=== PATIENT | male | born 1990 | race Caucasian/White ===

== ENCOUNTER 2016-11-04 17:49 | Emergency (ER) | payer BC, MEDICAID ==
[2016-11-04 18:04] VITALS: BP 139/82
[2016-11-04] MEDS ORDERED: Sodium Chloride 0.9% 10 ML Syringe FLUSH PRN (18:20)
[2016-11-04] MEDS ORDERED: Ondansetron 4 MG/2 ML SDV IVPUSH ONE (18:34)
[2016-11-04] MEDS ORDERED: Sodium Chloride 0.9% 1,000 ML IV ONE (18:34)
[2016-11-04] MEDS ORDERED: HYDROmorphone 0.5 MG/0.5 ML Syringe IVPUSH ONE (18:34)
--- NOTE | 2016-11-04 18:40 | EDM.PDOC ---
ED HPI GENERAL MEDICAL PROBLEM - General Chief Complaint: Abdominal Pain Stated Complaint: STOMACH PAIN SHORTNESS OF BREATH Time Seen by Provider: 11/04/16 18:25 Source of Information: Reports: Patient History Limitations: Reports: No Limitations - History of Present Illness INITIAL COMMENTS - FREE TEXT/NARRATIVE: Patient is a 26-year-old male who presents to the ED with generalized abdominal pain and bloated sensation. Patient states this past Thursday had fever with n/v and diarrhea. These symptoms have subsided the pain remains. Pain has been radiating up into both shoulders as of recent. He was evaluated at the [facility] today with x-ray of the abdomen obtained. Findings were concerning for ileus thus he was instructed to be evaluated in the E.D. Patient received 2 liters of IV fluids while at the clinic. Of note daughter recently had gastroenteritis as well. As of today patient denies any fever/chills, sore throat, chest pain, short of breath, dysuria, dizziness, bad or questionalble food, recent out of country travel, or any additional complaints. Upper Abdominal Pain Score (Numeric/FACES): 5 - Related Data Allergies Allergy/AdvReac Type Severity Reaction Status Date / Time No Known Allergies Allergy Verified 11/04/16 17:58 Home Meds: Home Meds . [No Known Home Meds] 11/04/16 [History] Past Medical History Genitourinary History: Reports: Renal Calculus Social & Family History - Recreational Drug Use Recreational Drug Use: No ED ROS GENERAL - Review of Systems Review Of Systems: See Below Constitutional: Reports: Fever, Malaise, Decreased Appetite Respiratory: Reports: No Symptoms Cardiovascular: Reports: No Symptoms GI/Abdominal: Reports: Abdominal Pain, Decreased Appetite, Distension, Nausea. Denies: Black Stool, Bloody Stool, Constipation, Diarrhea, Flatus, Hematemesis, Hematochezia, Vomiting : Denies: Dysuria Musculoskeletal: Reports: Shoulder Pain (bilateral discomfort to the ), Back Pain Neurological: Denies: Dizziness, Headache ED EXAM, GI/ABD - Physical Exam Exam: See Below Exam Limited By: No Limitations General Appearance: Alert, WD/WN, No Apparent Distress Eyes: Bilateral: Normal Appearance Ears: Hearing Grossly Normal Nose: Normal Inspection Throat/Mouth: Normal Voice, No Airway Compromise Neck: Normal Inspection, Supple Respiratory/Chest: No Respiratory Distress, Lungs Clear, Normal Breath Sounds Cardiovascular: Normal Peripheral Pulses, Regular Rate, Rhythm, No Murmur GI/Abdominal Exam: Normal Bowel Sounds, Tender (generalized), Abnormal Bowel Sounds (hyperactive), Other (firm) Back Exam: Normal Inspection Neurological: Alert, Oriented, CN II-XII Intact, Normal Cognition, No Motor/ Sensory Deficits Psychiatric: Normal Affect, Normal Mood Skin Exam: Warm, Dry, Intact, Normal Color Course - Vital Signs Last Recorded V/S: Last Vital Signs Temp 97.7 F 11/04/16 17:58 Pulse 87 11/04/16 17:58 Resp 16 11/04/16 17:58 BP 139/82 11/04/16 17:58 Pulse Ox 99 11/04/16 17:58 - Orders/Labs/Meds Orders: Active Orders 24 hr Category Date Time Status Peripheral IV Care [RC] . DIRECTED Care 11/04/16 18:20 Active Abdomen Pelvis w Cont [CT] Stat Exams 11/04/16 18:34 Taken CXR [Chest 1V Frontal] [CR] Stat Exams 11/04/16 19:22 Taken Sodium Chloride 0.9% [Normal Saline] 1,000 ml Med 11/04/16 18:34 Active IV ONETIME Sodium Chloride 0.9% [Saline Flush] Med 11/04/16 18:20 Active 10 ml FLUSH ASDIRECTED PRN Peripheral IV Insertion Adult [OM.PC] Stat Oth 11/04/16 18:20 Ordered Medication Orders Sodium Chloride (Normal Saline) 1,000 mls @ 125 mls/hr IV ONETIME ONE Stop: 11/05/16 02:33 Last Admin: 11/04/16 18:46 Dose: 125 mls/hr Sodium Chloride (Saline Flush) 10 ml FLUSH ASDIRECTED PRN PRN Reason: Keep Vein Open Last Admin: 11/04/16 18:32 Dose: 10 ml Labs: Laboratory Tests 11/04/16 11/04/16 11/04/16 Range/Units 18:15 18:23 18:23 WBC 8.44 (4.23-9.07) K/mm3 RBC 5.53 (4.63-6.08) M/mm3 Hgb 14.3 (13.7-17.5) gm/L Hct 42.6 (40.1-51.0) % MCV 77.0 L (79.0-92.2) fl MCH 25.9 (25.7-32.2) pg MCHC 33.6 (32.2-35.5) g/dl RDW Std Deviation 38.8 (35.1-43.9) fL Plt Count 224 (163-337) K/mm3 MPV 10.7 (9.4-12.3) fl Neut % (Auto) 65.1 (34.0-67.9) % Lymph % (Auto) 18.4 L (21.8-53.1) % [place] % (Auto) 15.9 H (5.3-12.2) % Eos % (Auto) 0.4 L (0.8-7.0) Baso % (Auto) 0.0 L (0.1-1.2) % Neut # (Auto) 5.50 H (1.78-5.38) K/mm3 Lymph # (Auto) 1.55 (1.32-3.57) K/mm3 [place] # (Auto) 1.34 H (0.30-0.82) K/mm3 Eos # (Auto) 0.03 L (0.04-0.54) K/mm3 Baso # (Auto) 0.00 L (0.01-0.08) K/mm3 Manual Slide Review Normal smear Sodium 141 (136-145) mEq/L Potassium 3.4 L (3.5-5.1) mEq/L Chloride 106 (98-107) mEq/L Carbon Dioxide 25 (21-32) mEq/L Anion Gap 13.4 (5-15) BUN 7 (7-18) mg/dL Creatinine 0.8 (0.7-1.3) mg/dL Est Cr Clr Drug Dosing 149.03 mL/min Estimated GFR (MDRD) > 60 (>60) mL/min BUN/Creatinine Ratio 8.8 L (14-18) Glucose 98 (74-106) mg/dL Calcium 8.7 (8.5-10.1) mg/dL Total Bilirubin 0.4 (0.2-1.0) mg/dL AST 17 (15-37) U/L ALT 30 (16-63) U/L Alkaline Phosphatase 51 (46-116) U/L C-Reactive Protein 6.6 H* (<1.0) mg/dL Total Protein 7.5 (6.4-8.2) g/dl Albumin 3.6 (3.4-5.0) g/dl Globulin 3.9 gm/dL Albumin/Globulin Ratio 0.9 L (1-2) Lipase 130 (73-393) U/L Urine Color Light yellow (Yellow) Urine Appearance Clear (Clear) Urine pH 7.0 (5.0-8.0) Ur Specific [place] 1.015 (1.005-1.030) Urine Protein Negative (Negative) Urine Glucose (UA) Negative (Negative) Urine Ketones Negative (Negative) Urine Occult Blood Negative (Negative) Urine Nitrite Negative (Negative) Urine Bilirubin Negative (Negative) Urine Urobilinogen 0.2 (0.2-1.0) Ur Leukocyte Esterase Negative (Negative) Urine RBC 0-5 (0-5) /hpf Urine WBC 0-5 (0-5) /hpf Ur Epithelial Cells 0-5 (0-5) /hpf Urine Bacteria Rare (FEW) /hpf Urine Mucus Not seen (FEW) /hpf Meds: Medications Generic Name Dose Route Start Last Admin Trade Name Freq PRN Reason Stop Dose Admin Sodium Chloride 1,000 mls @ 125 mls/hr 11/04/16 18:34 11/04/16 18:46 Normal Saline IV 11/05/16 02:33 125 mls/hr ONETIME ONE Administration Sodium Chloride 10 ml 11/04/16 18:20 11/04/16 18:32 Saline Flush FLUSH 10 ml ASDIRECTED PRN Administration Keep Vein Open Discontinued Medications Generic Name Dose Route Start Last Admin Trade Name Freq PRN Reason Stop Dose Admin Diatrizoate Meglum/Diatrizoate Sod 90 ml 11/04/16 19:31 11/04/16 20:12 Gastrografin 37% PO 11/04/16 19:32 90 ml ONETIME ONE Administration Hydromorphone HCl 0.5 mg 11/04/16 18:34 11/04/16 18:48 Dilaudid IVPUSH 11/04/16 18:35 0.5 mg ONETIME ONE Administration Iopamidol 125 ml 11/04/16 19:31 11/04/16 20:12 Isovue-300 (61%) IVPUSH 11/04/16 19:32 125 ml ONETIME ONE Administration Ondansetron HCl 4 mg 11/04/16 18:34 11/04/16 18:46 Zofran IVPUSH 11/04/16 18:35 4 mg ONETIME ONE Administration Sodium Chloride 10 ml 11/04/16 19:31 11/04/16 20:13 Saline Flush FLUSH 11/04/16 19:32 10 ml ONETIME ONE Administration - Re-Assessments/Exams Free Text/Narrative Re-Assessment/Exam: X-ray of the abdomen obtained today at [facility] impression: Air-fluid levels within nondilated small bowel. Findings suspicious for gastroenteritis. Please correlate. Of note patient has been recently ill with gastroenteritis. Nausea and vomiting has subsided yesterday. IV established with Dilaudid 0.5 mg IVP, Zofran 4 mg IVP, and NS 125 mL per hour. Initial labs and studies include CBC, chem 14, lipase, UA, CRP,CXR and CT of the abdomen and pelvis with oral and IV contrast. Labs reviewed: WBC 8.44, HGB 14.3, MCV 77, Neutrophi % 65.1, Lymph% 18.4, [place] % 15.9, Neut % 5.5, [place]$# 1.34, N+ 141, K+ 3.4, AG 13.4, Cr 0.8, glucose 98, LFTs are normal, CRP is elevated 6.6, lipase 130. UA negative. 11/04/16 21:28 CT of the abdomen and pelvis impression: No evidence of acute abdominopelvic pathology. Should results of CT and labs with patient. He has been passing copious amounts of flatulence. Discomfort is resolving. Will discharge patient home with instructions as documented. Departure - Departure Time of Disposition: 21:32 Disposition: Home, Self-Care 01 Condition: Good Clinical Impression: Gastroenteritis Abdominal pain Qualifiers: Abdominal location: generalized Qualified Code(s): R10.84 - Generalized abdominal pain - Discharge Information Instructions: Abdominal Pain, Adult, [id number] Referrals: PCP,None [Primary Care Provider] - Forms: ED Department Discharge, ED Return to Work/School Form Additional Instructions: As discussed CT of the abdomen did not reveal any evidence of acute abdominal pelvic pathology.Highly suspect this is related to recent Gastroenteritis infection that is resolving. Thus suggest sticking with a liquid diet for the next 2 days. Thereafter advance to a bland diet and to normal diet as tolerated. Refrain from dairy products, fruit juices, while fruits/vegetables, or spicy foods. Continue to push the fluids. Take Zofran as needed for nausea. Follow-up with PCP as needed the next 3-5 days for reevaluation. Return to the ED for any new or worsening symptoms. - My Orders Last 24 Hours: My Active Orders 11/04/16 18:20 Peripheral IV Care [RC] . DIRECTED Sodium Chloride 0.9% [Saline Flush] 10 ml FLUSH ASDIRECTED PRN Peripheral IV Insertion Adult [OM.PC] Stat 11/04/16 18:34 Abdomen Pelvis w Cont [CT] Stat Sodium Chloride 0.9% [Normal Saline] 1,000 ml IV ONETIME 11/04/16 19:22 CXR [Chest 1V Frontal] [CR] Stat - Assessment/Plan Last 24 Hours: My Active Orders 11/04/16 18:20 Peripheral IV Care [RC] . DIRECTED Sodium Chloride 0.9% [Saline Flush] 10 ml FLUSH ASDIRECTED PRN Peripheral IV Insertion Adult [OM.PC] Stat 11/04/16 18:34 Abdomen Pelvis w Cont [CT] Stat Sodium Chloride 0.9% [Normal Saline] 1,000 ml IV ONETIME 11/04/16 19:22 CXR [Chest 1V Frontal] [CR] Stat
[2016-11-04] MEDS ORDERED: Diatrizoate Meglumine/Diatrizoate Sodium 37% 120 ML Bottle PO ONE (19:31)
[2016-11-04] MEDS ORDERED: Sodium Chloride 0.9% 10 ML Syringe FLUSH ONE (19:31)
[2016-11-04] MEDS ORDERED: Iopamidol 612 MG/ML 150 ML Bottle IVPUSH ONE (19:31)
--- NOTE | 2016-11-05 08:36 | CR ---
Chest: Frontal view of the chest was obtained utilizing portable technique. Heart size and mediastinum are normal. Lungs are clear. Bony structures are grossly intact. Impression: 1. Nothing acute is seen on portable chest x-ray. Diagnostic code #1
--- NOTE | 2016-11-05 08:36 | CT ---
CT abdomen and pelvis Technique: Multiple axial sections were obtained from above the dome of the diaphragm inferiorly through the pubic symphysis. Intravenous and oral contrast has been given. Delayed images were obtained through the bladder. Comparison: No previous abdominal CT. Findings: Mild atelectasis is noted within both lung bases. Liver shows no focal parenchymal abnormality. Spleen appears within normal limits. Adrenal glands show no nodule. Pancreas appears within normal limits. Kidneys show symmetric contrast enhancement without hydronephrosis or mass. Aorta shows no aneurysm. No retroperitoneal adenopathy or mesenteric abnormalities are seen. No pelvic mass or adenopathy is seen. Delayed images show contrast within the distal ureters and bladder. Appendix is seen which appears normal. Bone window settings were reviewed which appear within normal limits for the patient's age. Impression: 1. No acute abnormality is identified on CT study of the abdomen and pelvis. Diagnostic code #1 Agree with preliminary report issued by [facility] ([facility] preliminary report dictated on 11/04/16, 9:44 PM Central Time)
== END 2016-11-04 21:41 | disposition home or self-care (01) ==
LOC: JD.ED 17:49
DX: K52.9 Noninfective gastroenteritis and colitis, unspecified (principal); Z87.442 Personal history of urinary calculi
CPT/HCPCS: 36415; 71010; 74020; 74177; 80053; 81001; 83690; 85025; 86140; 96361; 96374; 96375; 99284; J1170; J2405; J7040; J7050; Q9963; Q9967; 99283

== ENCOUNTER 2020-12-31 20:01 | Emergency (ER) | payer OTHER ==
--- NOTE | 2020-12-31 20:37 | EDM.PDOC ---
ED HPI GENERAL MEDICAL PROBLEM - General Chief Complaint: Lower Extremity Injury/Pain Stated Complaint: LEFT ANKLE INJURY/WSI Time Seen by Provider: 12/31/20 20:09 Source of Information: Reports: Patient, Significant Other (Girlfriend) History Limitations: Reports: No Limitations - History of Present Illness INITIAL COMMENTS - FREE TEXT/NARRATIVE: Mr. Perez is a very pleasant 38-year-old gentleman who now presents to the ED with a left ankle injury. He states that he twisted his left ankle around 18:45 this evening, while at work. He states that he felt a pop, then developed pain to his lateral ankle with weightbearing. No prior left ankle injury. He is otherwise uninjured. The patient states that he took 800 mg of ibuprofen just after the injury. At triage, the patient was found to be hemodynamically stable, afebrile, saturating 97% on room air. He appears to be comfortable, in no acute distress. He applied a sterile splint to his left ankle, that he says was left over from a prior right ankle injury. He also came to the ED on crutches. Prior to this evening, the patient denies having a recent fever, chills, sore throat, ear pain, nasal or sinus congestion, cough, dyspnea, chest pain, palpitations, nausea, vomiting, constipation, diarrhea, abdominal pain, urinary symptoms, recent weight gain or weight loss, recent bloody bowel movements or black bowel movements, recent joint aches, headaches, or rashes. The patient does not have a PCP. He has not received a COVID vaccination, nor an influenza vaccination this season. Left Ankle Pain Score (Numeric/FACES): 7 - Related Data Allergies Allergy/AdvReac Type Severity Reaction Status Date / Time No Known Allergies Allergy Verified 12/31/20 20:11 Home Meds: Home Meds . [No Known Home Meds] 11/04/16 [History] Past Medical History Genitourinary History: Reports: Renal Calculus Psychiatric History: Reports: ADHD (untreated) - Infectious Disease History Infectious Disease History: Reports: Chicken Pox, Novel Coronavirus (dx'd 11/29/2020) - Past Surgical History HEENT Surgical History: Reports: Adenoidectomy, Tonsillectomy Social & Family History - Tobacco Use Tobacco Use Status *Q: Former Tobacco User Years of Tobacco use: 5 Packs/Tins Daily: 0.8 Month/Year Tobacco Last Used: Quit 2013 Tobacco Use Comment: Started smoking 2008 Second Hand Smoke Exposure: No - Caffeine Use Caffeine Use: Reports: Coffee Caffeine Use Comment: 2 cups per day - Alcohol Use Alcohol Use History: Yes Alcohol Use Frequency: Rarely - Recreational Drug Use Recreational Drug Use: No - Living Situation & Occupation Living situation: Reports: , Alone 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 ED EXAM, GENERAL - Physical Exam Exam: See Below Exam Limited By: No Limitations General Appearance: Alert, WD/WN, No Apparent Distress Extremities: Other (No visible abnormality to the left ankle, when compared to the right, such as swelling, erythema, ecchymosis, or abrasion, however, patient does report significant tenderness along his distal fibula, proximal to the lateral malleolus. No significant tenderness elsewhere. Neurovascular status of th) Course - Vital Signs Last Recorded V/S: Last Vital Signs Temp 36.7 C 12/31/20 20:11 Pulse 71 12/31/20 20:11 Resp 17 12/31/20 20:11 BP 139/88 12/31/20 20:11 Pulse Ox 97 12/31/20 20:11 - Orders/Labs/Meds Orders: Active Orders 24 hr Category Date Time Status Ankle Min 3V Lt [CR] Stat Exams 12/31/20 20:32 Taken - Re-Assessments/Exams Free Text/Narrative Re-Assessment/Exam: 12/31/20 20:33 Although there is no visible abnormality, the patient is quite tender along his distal fibula. I have ordered x-rays to evaluate. The patient declined an offer for pain medication. 12/31/20 20:53 4-view radiographs of the left ankle appear to be grossly normal, with no fractures or dislocations identified. Formal read per the Radiologist pending. 12/31/20 20:56 X-ray results discussed with the patient and his girlfriend. He appears to have contused or strained his left ankle. I recommended ice and elevation for couple of days, along with OTC ibuprofen. I recommended that he ambulate on it, to help normalize his pain response. I offered to provide a note for him to be off work until Thursday, but he is already off work until then. Departure - Departure Time of Disposition: 20:57 Disposition: Home, Self-Care 01 Condition: Good Clinical Impression: Left ankle strain - Discharge Information *PRESCRIPTION DRUG MONITORING PROGRAM REVIEWED*: Not Applicable *COPY OF PRESCRIPTION DRUG MONITORING REPORT IN PATIENT HAO: Not Applicable Referrals: PCP,None [Primary Care Provider] - Forms: ED Department Discharge Additional Instructions: You were seen in the emergency room after injuring your left ankle at work tonight. Work-up in the ER included x-rays of your left ankle, which returned normal, with no broken bones or dislocations seen. Based on your history, physical examination, and ER x-rays, you appear to have contused or strained your left ankle. We recommend that you ice and elevate your left ankle several times a day for the next 2 to 3 days, to help minimize swelling. You may take [id number] over the ibuprofen, 3 tablets (600 mg) up to every 8 hours, with food, as needed for discomfort. Because there is no structural abnormality to your ankle, we recommend that you ambulate without crutches. This will help to reset your pain threshold. If any other problems, please do not hesitate to return to the ER. Sepsis Event Note (ED) - Evaluation Sepsis Screening Result: No Definite Risk - Focused Exam Vital Signs: Vital Signs Temp Pulse Resp BP Pulse Ox 12/31/20 20:11 36.7 C 71 17 139/88 97 - My Orders Last 24 Hours: My Active Orders 12/31/20 20:32 Ankle Min 3V Lt [CR] Stat - Assessment/Plan Last 24 Hours: My Active Orders 12/31/20 20:32 Ankle Min 3V Lt [CR] Stat
--- NOTE | 2020-12-31 20:57 | CR ---
Left ankle: 4 views of the left ankle were obtained. Comparison: No prior left ankle study is available. Ankle mortise is symmetric. No fracture, dislocation or other bony abnormality is seen. Impression: 1. No abnormality is appreciated on left ankle exam. Diagnostic code #1
[2020-12-31 21:15] VITALS: BP 140/88; PULSE 72
== END 2020-12-31 21:08 | disposition home or self-care (01) ==
LOC: JD.ED 20:01
DX: S96.912A Strain of unspecified muscle and tendon at ankle and foot level, left foot, initial encounter (principal); Z86.16 Personal history of COVID-19; Z87.891 Personal history of nicotine dependence; X50.1XXA Overexertion from prolonged static or awkward postures, initial encounter; Y99.0 Civilian activity done for income or pay
CPT/HCPCS: 73610-26-LT; 73610-LT; 99283-25